=== PATIENT | male | born 1950 | race Two or more races ===

== ENCOUNTER 2018-03-23 16:29 | Emergency (ER) | payer OTHER ==
[~2018-03-23] VITALS: Ht 175.3 cm; Wt 80.7 kg
[~2018-03-23 16:29] MED LIST: ANTIVERT25 M1 PO
== END 2018-03-23 19:41 | disposition home or self-care (01) ==
LOC: ER 16:29
DX: L03.116 Cellulitis of left lower limb (principal)

== ENCOUNTER 2019-08-17 15:38 | Emergency (ER) | payer OTHER ==
[~2019-08-17] VITALS: Ht 152.4 cm; Wt 88.5 kg
[2019-08-17] MEDS ORDERED: DAFLONEX-XL 11300 MG (15:55)
[2019-08-17] MEDS ORDERED: BACTRIM DS TAB1 EACH PO (21:22)
[2019-08-26] MEDS ORDERED: LEVO-T50 MCG PO (09:44)
[2019-08-28] MEDS ORDERED: [UNRECOGNIZED DRUG - OTHER] (14:57)
[2019-08-28] MEDS ORDERED: DAFLONEX-XL 11300 MG (14:57)
== END 2019-08-17 17:35 | disposition home or self-care (01) ==
LOC: ER 15:38
DX: I87.2 Venous insufficiency (chronic) (peripheral) (principal); M79.604 Pain in right leg; R51 Headache; S80.11XS Contusion of right lower leg, sequela; S00.83XS Contusion of other part of head, sequela; Z03.818 Encounter for observation for suspected exposure to other biological agents ruled out; W22.8XXS Striking against or struck by other objects, sequela

== ENCOUNTER 2019-08-26 09:35 | Inpatient (IN) | payer OTHER | END 2019-08-31 10:43 | disposition designated cancer center or children's hospital (05) | DRG 281 | LOC: ER 09:35 → ICU 15:58 → MEDI 18:00 → SURH 18:09 | PROVIDERS: ADMIT Specialist | PROC: 4A12X4Z Monitoring of Cardiac Electrical Activity, External Approach (ICD-10-PCS; principal; 2019-08-26) | PROC: 4A033R1 Measurement of Arterial Saturation, Peripheral, Percutaneous Approach (ICD-10-PCS; 2019-08-26) | DX: I21.4 Non-ST elevation (NSTEMI) myocardial infarction (principal); L03.116 Cellulitis of left lower limb; I24.9 Acute ischemic heart disease, unspecified; E03.8 Other specified hypothyroidism; I73.9 Peripheral vascular disease, unspecified; I25.10 Atherosclerotic heart disease of native coronary artery without angina pectoris; M25.561 Pain in right knee; E78.5 Hyperlipidemia, unspecified; R94.5 Abnormal results of liver function studies; N40.0 Benign prostatic hyperplasia without lower urinary tract symptoms; Z86.711 Personal history of pulmonary embolism ==